=== PATIENT | female | born 1970 | race American Indian/Alaskan Native ===

== ENCOUNTER 2024-11-25 08:19 | Emergency (ER) | payer OTHER ==
[~2024-11-25] VITALS: Ht 172.7 cm; Wt 104.0 kg
--- NOTE | 2024-11-25 08:47 | ED.PDOC ---
History of Present Illness HPI Comments 54 y/o F, brought in by ambulance presents to the ED for CC of syncope. Patient states, that she was at work this morning (11/25/24) when she began to feel weak, fatigued, and dizzy. Per EMS, when they arrived to the scene patient was transferred to [facility] when she had a syncopal episode losing consciousness. Patient denies social history. Patient denies fever, chills, body aches, hitting her head, nausea, or vomiting. No other symptoms or modifying factors at this time. 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 Hx Family History Family History: Unknown Social History Smoker: Non-Smoker Alcohol: Denies ETOH Use Drugs: Denies Drug Use Lives In: Home Constitutional: reports: fatigue, weakness; denies: chills, diaphoresis, fever, malaise, sweats, others EENTM: denies: blurred vision, double vision, ear bleeding, ear discharge, ear drainage, ear pain, ear ringing, eye pain, eye redness, hearing loss, mouth pain, mouth swelling, nasal discharge, nose bleeding, nose congestion, nose pain, photophobia, tearing, throat pain, throat swelling, voice changes, others Respiratory: denies: cough, hemoptysis, orthopnea, SOB at rest, shortness of breath, SOB with excertion, stridor, wheezing, others Cardiovascular: denies: chest pain, dizzy spells, diaphoresis, Dyspnea on exertion, edema, irregular heart beat, left arm pain, lightheadedness, palpitations, PND, syncope, others Gastrointestinal: denies: abdomen distended, abdominal pain, blood streaked bowels, constipated, diarrhea, dysphagia, difficulty swallowing, hematemesis, melena, nausea, poor appetite, poor fluid intake, rectal bleeding, rectal pain, vomiting, others Genitourinary: denies: abnormal vagina bleeding, burning, dyspareunia, dysuria, flank pain, frequency, hematuria, incontinence, pain, , vagina discharge, urgency, others Neurological: reports: dizziness; denies: fainting, headache, left sided numbness, left sided weakness, numbness, paresthesia, pre-existing deficit, right sided numbness, right sided weakness, seizure, speech problems, tingling, tremors, weakness, others Musculoskeletal: denies: back pain, gout, joint pain, joint swelling, muscle pain, muscle stiffness, neck pain, others Integumetry: denies: bruises, change in color, change in hair/nails, dryness, laceration, lesions, lumps, rash, wounds, others Allergic/Immunocompromised: denies: Difficulty Healing, Frequent Infections, Hives, Itching, others Hematologic/Lymphatic: denies: anemia, blood clots, easy bleeding, easy bruising, swollen glands, others Endocrine: denies: excessive hunger, excessive sweating, excessive thirst, excessive urination, flushing, intolerance to cold, intolerance to heat, unexplained weight gain, unexplained weight loss, others Psychiatric: denies: anxiety, bipolar disorder, depression, hopeless, panic disorder, schizophrenia, sleepless, suicidal, others All Other Systems: Reviewed and Negative Physical Exam General Appearance: Moderate Distress HEENT: Normal ENT Inspection, Pharynx Normal, TMs Normal Neck: Full Range of Motion, Non-Tender, Normal, Normal Inspection Respiratory: Chest Non-Tender, Lungs Clear, No Accessory Muscle Use, No Respiratory Distress, Normal Breath Sounds Cardiovascular: No Edema, No JVD, No Murmur, No Gallop, Normal Peripheral Pulses, Regular Rate/Rhythm Breast Exam: Deferred Gastrointestinal: No Organomegaly, Non Tender, No Pulsatile Mass, Normal Bowel Sounds, Soft Genitalia: Deferred Pelvic: Deferred Rectal: Deferred Extremities: No calf tenderness, Normal capillary refill, Normal inspection, Normal range of motion, Non-tender, No pedal edema Musculoskeletal : Apperance: Normal Neurologic: Alert, podiatric aide II-XII nml as Tested, No Motor Deficits, Normal Affect, Normal Mood, No Sensory Deficits Cerebellar Function: Normal Reflexes: Normal Skin: Dry, Normal Color, Warm Peripheral Pulses: 3+ Radial (R), 3+ Radial (L) Lymphatic: No Adenopathy Was a procedure done? Was a procedure done?: No Differential Dx Considerations may include: syncopal episode, dehydration X-Ray, Labs, Meds, VS Vital Signs Date Time Temp Pulse Resp B/P (MAP) Pulse Ox O2 Delivery O2 Flow Rate FiO2 11/25/24 10:13 88 18 99 Room Air 11/25/24 10:13 97.5 88 18 136/95 (109) 99 97.5 11/25/24 08:46 98.0 98 18 158/103 (121) 98 11/25/24 08:30 84 Lab Test 11/25/24 09:05 11/25/24 08:41 11/25/24 08:38 Range/Units Urine Color Colorless Yellow Urine Clarity Clear Clear Urine pH 6.5 5.0-9.0 Urine Specific [place] 1.002 1.001-1.035 Urine Protein Negative Negative Urine Ketones Negative Negative Urine Blood Negative Negative /uL Urine Nitrite Negative Negative Urine Bilirubin Negative Negative Urine Urobilinogen Normal Negative mg/dL Urine Leukocyte Esterase Negative Negative /uL Urine RBC <1 0 - 4 /hpf Urine Microscopic WBC 1 0-5 /HPF Urine Squamous Epithelial Cells Few <5 /hpf Urine Bacteria None seen None Seen /hpf Urine Glucose Normal Normal mg/dL Hemoglobin 14.4 12.2-16.2 g/dL Hematocrit 42.6 36.0-46.0 % Troponin I High Sensitivity < 3 L </=34 ng/L POC Glucose 96 70-106 mg/dl [place] [id number] Ph: [phone] DIAGNOSTIC IMAGING Diagnostic Imaging Report : [id number] Signed PATIENT: DREA RUBY LACCT: [id number] UNIT: [id number] : 1970 LOC: ER ROOM / BED: / AGE / SEX: 54 / F ADM STATUS: REG ER SERVICE [id number] ORDERING PHYSICIAN: GABRIELA PONCE MD PROCEDURE(s): HWOCT - HEAD WITHOUT CONTRAST REASON: dizzy ORDER NUMBER(s): [id number], ACCESSION NUMBER(s): [id number] EXAM: CT HEAD WITHOUT CONTRAST INDICATION: Dizzy TECHNIQUE: CT of the head without intravenous contrast. Coronal and sagittal reformatted images are submitted. Radiation Dose : 1. Head: CT Dose: CTDI volume is 62.65 mGy. Dose-length product is 1109.21 mGy*cm The dose indicators for CT are the volume Computed Tomography (CT) Dose Index (CTDIvol) and the Dose Length Product (DLP), and are measured in units of mGy and mGy-cm, respectively. These indicators are not patient dose, but values generated from the CT scanner acquisition factors. The report includes radiation exposure data for exposures received during this examination. All CT scans at this medical facility are performed using dose modulation techniques as appropriate to a performed exam including the following: Automated exposure control was utilized; adjustment of the MA and/or KV according to patient size; and use of iterative reconstruction technique. COMPARISON: None FINDINGS: There is no evidence of acute intracranial hemorrhage, extra-axial collection, mass effect, midline shift, herniation or hydrocephalus. The ventricles, sulci and cisterns are age appropriate. The chen-white differentiation is intact. The visualized paranasal sinuses and mastoid air cells are clear. No depressed calvarial fracture. The surrounding soft tissues are unremarkable. IMPRESSION: 1. No evidence of acute intracranial abnormality. ATED BY: ROGELIO THOMSON MD DICTATED DATE/TIME: 11/25/24910 SIGNED BY: ROGELIO THOMSON MD SIGNED DATE/TIME: 11/25/24910 CC: Patient alert. Came in because of dizziness. No sign of any injury. Vitals stable. Answering all questions. CT of the head reviewed does not show any acute changes. Able to ambulate without difficulty. Autonomic disorder. Hemoglobin within normal limits. Mentating well. States that she is feeling much better. Good muscle strength in all extremities. No leg swelling. No sign of any emergency condition. Was given prescription of meclizine. Explained to the patient. Was told to follow up with her primary care physician. Was told to come back if there is any problem. Time of 1ST Reevaluation: 09:00 Reevaluation 1ST: Improved Time of 2ND Reevaluation: 10:38 Reevaluation 2ND: Improved Patient Education/Counseling: Diagnosis, Treatment Family Education/Counseling: No Family Present Additional Information I reviewed the following notes from patient's past medical encounters: NONE The following tests were ordered, and results were reviewed by me: HEAD CT W/O CONTRAST, UA, TROPONIN, HEMOGLOBIN & HEMATOCRIT Additional Information was gathered from interviewing the following independent historians: EMT I reviewed and agreed with the following test results read by other providers: HEAD CT W/O CONTRAST I discussed treatment and results with medical personnel and: FAMILY Departure 1 Departure Time of Disposition: 10:40 Impression: Primary Impression: Autonomic disorder Disposition: 01 HOME / SELF CARE / HOMELESS Condition: Good e-Prescriptions Meclizine Hcl (Meclizine Hcl) 25 Mg Chw 25 MG PO DAILY for 5 Days, #5 TAB.CHEW Prov: GABRIELA PONCE MD 11/25/24 Discharged With: Self Critical Care Note Critical Care Time?: No Stability Stability form required: No Heart Score Heart Score: Heart Score Response (Comments) Value History N/A 0 EKG N/A 0 Age N/A 0 Risk Factors N/A 0 Troponin N/A 0 Total 0 I personally scribed for GABRIELA PONCE MD ([email or web address]) on 11/25/24 at 08:47. Electronically submitted by Natalie Monroe ([email or web address]). I personally scribed for GABRIELA PONCE MD ([email or web address]) on 11/25/24 at 09:09. Electronically submitted by Natalie Monroe ([email or web address]). I personally scribed for GABRIELA PONCE MD ([email or web address]) on 11/25/24 at 09:18. El ectronically submitted by Natalie Monroe ([email or web address]). GABRIELA PONCE MD Nov 25, 2024 08:47
[2024-11-25 08:57] LABS: Hematocrit 42.6 % (36.0-46.0); Hemoglobin 14.4 g/dL (12.2-16.2)
--- NOTE | 2024-11-25 09:14 | DVH ---
EXAM: CT HEAD WITHOUT CONTRAST INDICATION: Dizzy TECHNIQUE: CT of the head without intravenous contrast. Coronal and sagittal reformatted images are submitted. Radiation Dose : 1. Head: CT Dose: CTDI volume is 62.65 mGy. Dose-length product is 1109.21 mGy*cm The dose indicators for CT are the volume Computed Tomography (CT) Dose Index (CTDIvol) and the Dose Length Product (DLP), and are measured in units of mGy and mGy-cm, respectively. These indicators are not patient dose, but values generated from the CT scanner acquisition factors. The report includes radiation exposure data for exposures received during this examination. All CT scans at this medical facility are performed using dose modulation techniques as appropriate to a performed exam including the following: Automated exposure control was utilized; adjustment of the MA and/or KV according to patient size; and use of iterative reconstruction technique. COMPARISON: None FINDINGS: There is no evidence of acute intracranial hemorrhage, extra-axial collection, mass effect, midline s hift, herniation or hydrocephalus. The ventricles, sulci and cisterns are age appropriate. The chen-white differentiation is intact. The visualized paranasal sinuses and mastoid air cells are clear. No depressed calvarial fracture. The surrounding soft tissues are unremarkable. IMPRESSION: 1. No evidence of acute intracranial abnormality.
[2024-11-25 09:39] LABS: Urine Bacteria None Seen /hpf (None Seen)
[2024-11-25 09:51] LABS: Urine Blood Negative /uL (Negative); Urine Clarity Clear (Clear); Urine Color Colorless (Yellow); Urine Protein, UAD Negative (Negative); Urine Specific Gravity 1.002 (1.001-1.035); Urine Squamous Epithelial Cell FEW /hpf (<5); Urine Urobilinogen Normal (Negative); Urine WBC 1 /HPF (0-5); Urine pH 6.5 (5.0-9.0)
[2024-11-25 10:13] VITALS: BP 136/95; PULSE 88; RESP 18; TEMP 97.5; O2SAT 99
[2024-11-25] MEDS ORDERED: MECL25CH20 PO (10:41)
--- NOTE | 2024-11-25 19:02 | ECG ---
[facility] Test Date: 2024-11-25 Test Time: 08:27:47 Pat Name: DREA RUBY Department: ED Room: Gender: F Account Contact Associate: OSWALD : 1970 Requested By: GABRIELA PONCE Order Number: [id number] Reading MD: Jalen Laboy Measurements Intervals [place] Rate: 84 P: 67 ND: 169 QRS: 38 QRSD: 108 T: 39 QT: 383 QTc: 453 Interpretive Statements Sinus rhythm Low voltage, precordial leads Borderline T abnormalities, anterior leads Electronically Signed On 11-26-2024 9:47:55 PST by Jalen Laboy Please click the below link to view image of tracing.
== END 2024-11-25 11:00 | disposition home or self-care (01) ==
LOC: EDBD 08:19 → ER 08:19
DX: G90.89 Other disorders of autonomic nervous system (principal)
CPT/HCPCS: 36415; 70450; 81001; 82962; 84484; 85014; 85018; 93005